=== PATIENT | female | born 1965 | race Two or more races ===

== ENCOUNTER → 2021-06-22 | Emergency (ER) | payer OTHER ==
[~2021-06-22] VITALS: Ht 152.4 cm; Wt 68.5 kg
[~2021-06-22] MED LIST: PROAIR RESPICL90 MCG; TREXIMET 85-501 EACH; [UNRECOGNIZED DRUG - OTHER]
== END | disposition left against medical advice (07) ==
LOC: ER 00:31
DX: Z53.21 Procedure and treatment not carried out due to patient leaving prior to being seen by health care provider (principal)